=== PATIENT | male | born 1975 | race Hispanic/Latino ===

== ENCOUNTER 2018-02-07 16:22 | Emergency (ER) | payer OTHER ==
[2018-02-07] MEDS ORDERED: IBUPROFEN 600 MG TABLET ONE (16:53)
[2018-02-07] MEDS ORDERED: TETANUS/DIPHTHERIA TOXOID [ADULT] 0.5 ML VIAL IM ONE (16:54)
== END 2018-02-07 17:39 | disposition home or self-care (01) ==
LOC: EDH 16:22
DX: S41.112A Laceration without foreign body of left upper arm, initial encounter (principal); E11.9 Type 2 diabetes mellitus without complications; V43.53XA Car driver injured in collision with pick-up truck in traffic accident, initial encounter; Y93.89 Activity, other specified; Y92.89 Other specified places as the place of occurrence of the external cause; Y99.8 Other external cause status
CPT/HCPCS: 73130; 90471; 90714